=== PATIENT | female | born 1965 | race Two or more races ===

== ENCOUNTER 2021-03-11 22:49 | Emergency (ER) | payer SELFPAY ==
[~2021-03-11] VITALS: Ht 157.5 cm; Wt 77.4 kg
[2021-03-11 22:58] VITALS: BP 112/82
[2021-03-12] MEDS ORDERED: SODIUM CHLORIDE 0.9% 1,000 ML IV ONE
[2021-03-12 00:39] LABS: BASOPHILS % 0.7 % (0.0-2.0); EOSINOPHILS % 3.2 % (0.0-5.0); HEMOGLOBIN. 12.4 g/dL (12.0-16.0); LYMPHOCYTES % 35.3 % (20.0-50.0); MEAN CORPUSCULAR HEMOGLOBIN 30.7 pg (28.0-32.0); MEAN CORPUSCULAR VOLUME 91.9 fL (81.0-99.0); MEAN PLATELET VOLUME 8.1 fl (7.4-10.4); MONOCYTES % 5.1 % (2.0-8.0); NEUTROPHILS % 55.7 % (40.0-76.0); PLATELET 202 x1000/uL (130-400); RED BLOOD CELL COUNT 4.03 mill/uL (4.2-5.4); RED CELL DISTRIBUTION WIDTH 13.8 % (11.6-14.6)
[2021-03-12 00:43] LABS: CHLORIDE 111 mEq/L (98-107)
[2021-03-12] MEDS ORDERED: IBUP-2028 MT (04:09)
[2021-03-12] MEDS ORDERED: IOHEXOL-300 100 ML BOTTLE ONE (06:35)
== END 2021-03-12 05:13 | disposition home or self-care (01) ==
LOC: ER 22:49
DX: S16.1XXA Strain of muscle, fascia and tendon at neck level, initial encounter (principal); S09.8XXA Other specified injuries of head, initial encounter; M54.9 Dorsalgia, unspecified; R07.89 Other chest pain; V49.49XA Driver injured in collision with other motor vehicles in traffic accident, initial encounter; Y93.89 Activity, other specified; Y92.89 Other specified places as the place of occurrence of the external cause; Y99.8 Other external cause status; I95.9 Hypotension, unspecified
CPT/HCPCS: 36415; 70450; 71045; 71260; 72125; 74177; 80048; 85025; 99285; J7030; Q9967